=== PATIENT | female | born 1990 | race Caucasian/White ===

== ENCOUNTER 2016-10-20 09:55 | Emergency (ER) | payer OTHER ==
[2016-10-20 10:08] VITALS: TEMP 97.6; O2SAT 100
[2016-10-20] MEDS ORDERED: KETOROLAC TROMETHAMINE INJ 30 MG/ML VIAL IV ONE (10:18)
[2016-10-20] MEDS ORDERED: SODIUM CHLORIDE 0.9% (FLUSH) 10 ML SYG IV PRN (10:18)
[2016-10-20] MEDS ORDERED: ONDANSETRON INJ 4 MG/2 ML VIAL IV ONE (10:18)
[2016-10-20] MEDS ORDERED: SODIUM CHLORIDE 0.9% 1000ML 1,000 ML IVS PRN (10:18)
--- NOTE | 2016-10-20 10:22 | ED.PDOC ---
History of Present Illness - General Chief Complaint: Abdominal Pain Stated Complaint: abdominal pain n/v/d Time Seen by Provider: 10/20/16 10:18 Information Source: patient Exam Limitations: no limitations - History of Present Illness Initial Comments: PT REPORTS RUQ ABDOMINAL PAIN ASSOCIATED WITH 4 EPISODES OF VOMITING. PT REPORTS THE LAST EPISODE OF VOMITING WAS BLOOD TINGED. PT DENIES, DIARRHEA, FEVER, CHILLS, OR URINARY SYMPTOMS. Abdominal Pain Onset Location: RUQ Quality: moderate Timing/Duration: 1-3 hours Review of Systems - Review of Systems Constitutional: Denies: diaphoresis, fever EENTM: Denies: ear pain, throat pain Respiratory: Denies: cough, short of breath Cardiology: Denies: chest pain, palpitations Gastrointestinal/Abdominal: States: see HPI, abdominal pain, nausea, vomiting. Denies: diarrhea Genitourinary: Denies: dysuria, frequency Musculoskeletal: Denies: back pain, joint swelling Skin: Denies: change in color, lesions Neurological: Denies: headache, paresthesia Past Medical History (General) - Patient Medical History Hx Asthma: No Hx Hypertension: No Hx Diabetes: No Other Surgeries:: SHOULDER, KNEE SURGERY - Vaccination History Hx Influenza Vaccination: No Hx Pneumococcal Vaccination: No - Social History Hx Tobacco Use: No Hx Alcohol Use: No Hx Substance Use: No Hx Substance Use Treatment: No Hx Depression: No - Activities of Daily Living Assisted/Assisted Living (if applicable):: [facility] Agency (if applicable):: None - Female History Patient is a Female of Child Bearing Age (10 -59 yrs old): Yes Patient : No Family Medical History - Family History Mother Family History: No Known Living Status: Still Living Physical Exam - Physical Exam General Appearance: No apparent distress Eyes, Ears, Nose, Throat Exam: normal ENT inspection Neck: normal inspection Respiratory: normal breath sounds, no respiratory distress Cardiovascular/Chest: regular rate, rhythm, no murmur Gastrointestinal/Abdominal: soft, tenderness - EPIGASTRIC AND RUQ Back Exam: normal inspection Extremity: normal range of motion, normal inspection Neurologic: alert, normal mood/affect, oriented x 3 Skin Exam: normal color, warm/dry Progress - Progress Progress: 10/20/16 11:36 PT REPORTS SIGNIFICANT IMPROVEMENT OF SYMPTOMS AFTER IV TORADOL AND ZOFRAN. PT ABLE TO TOLERATE PO FLUIDS IN THE ED WITHOUT FURTHER EPISODES OF VOMITING. LABS DISCUSSED WITH PT. RECOMMEND OUTPATIENT U/S IF RUQ PAIN PERSISTS. WILL D/ C HOME WITH ANTIEMETIC AND RECOMMEND FOLLOW UP WITH PRIMARY PHYSICIAN. - Results/Orders Results/Orders: 10/20/16 10:18 Sodium Chloride 0.9% (Flush) [Saline Flush Syringe] 10 ml IV PRN PRN Sodium Chloride 0.9% 1000ML [Ns 1000 ml] 1,000 ml IVS .QD Laboratory Results - last 24 hr 10/20/16 10:35 WBC 5.3 RBC 4.78 Hgb 15.5 Hct 45.1 MCV 94.4 MCH 32.4 H MCHC 34.3 RDW 11.9 Plt Count 317 MPV 8.1 Absolute Neuts (auto) 3.30 Absolute Lymphs (auto) 1.60 Absolute Monos (auto) 0.30 Absolute Eos (auto) 0.10 Absolute Basos (auto) 0.10 Neutrophils % 61.3 Lymphocytes % 30.9 Monocytes % 5.8 Eosinophils % 1.0 Basophils % 1.0 Sodium 136 Potassium 3.6 Chloride 102 Carbon Dioxide 28 Anion Gap 9.6 L BUN 12 Creatinine 0.89 BUN/Creatinine Ratio 13.5 Random Glucose 92 Serum Osmolality 271.4 L Calcium 9.3 Total Bilirubin 0.6 Direct Bilirubin 0.1 Indirect Bilirubin 0.5 AST 22 ALT 28 Alkaline Phosphatase 81 Serum Total Protein 8.1 Albumin 4.8 Amylase 47 Lipase 23 Serum HCG, Qual Negative Urine Color Yellow Urine Appearance Clear Urine pH 7.5 Ur Specific [place] 1.020 Urine Protein Negative Urine Glucose (UA) Negative Urine Ketones Negative Urine Blood Trace-intact H Urine Nitrite Negative Urine Bilirubin Negative Urine Urobilinogen 0.2 Ur Leukocyte Esterase Negative Urine RBC 0-1 Urine WBC 0-1 Ur Epithelial Cells 3-5 Urine Bacteria 1+ Departure - Departure Clinical Impression: Abdominal pain Qualifiers: Abdominal location: right upper quadrant Qualifier Code: (R10.11) Right upper quadrant pain Vomiting Qualifiers: Vomiting type: hematemesis Nausea presence: with nausea Qualifier Code: (K92.0 ) Hematemesis Time of Disposition: 11:39 Disposition: Discharge to Home or Self Care Condition: Good Departure Forms: ED Discharge - Pt. Copy, Patient Portal Self Enrollment Instructions: DI for Abdominal Pain-Adult, DI for Vomiting -- Adult Diet: bland diet Prescriptions: Tramadol-Acetaminophen [Ultracet] 1 - 2 tab PO Q6HR PRN #30 tab PRN Reason: Pain Ondansetron Odt [Zofran ODT] 8 mg PO TID PRN #15 tab PRN Reason: Nausea/Vomiting Home Medications: Ambulatory Orders Ondansetron Odt [Zofran ODT] 8 mg PO TID PRN #15 tab 10/20/16 Tramadol-Acetaminophen [Ultracet] 1 - 2 tab PO Q6HR PRN #30 tab 10/20/16
[2016-10-20 12:01] VITALS: BP 129/77
== END 2016-10-20 12:01 | disposition home or self-care (01) ==
LOC: ER 09:55
DX: R10.11 Right upper quadrant pain (principal); K92.0 Hematemesis
CPT/HCPCS: 36415; 80048; 80076; 81001; 82150; 83690; 84703; 85025; J1885; J2405; J7030

== ENCOUNTER → 2016-11-01 | Outpatient (CLI) | payer OTHER ==
--- NOTE | 2016-11-01 13:39 | US ---
EXAM DESCRIPTION: Abdomen,Complete CLINICAL HISTORY: 26 years,Female,RUQ PAIN COMPARISON: None TECHNIQUE: Multiple real-time sonographic images were obtained of the entire abdomen. FINDINGS: The liver demonstrates normal echotexture. No masses. No cysts. The gallbladder demonstrates a small nodule seen at the neck of the gallbladder and is nonshadowing it measures about 6 mm. There is no pericholecystic fluid. The gallbladder wall thickness is unremarkable. No intrahepatic biliary ductal dilatation. The common bile duct measures three mm. The right kidney demonstrates normal cortical echotexture and thickness. There are no stones, hydronephrosis, or masses. The right kidney measures 9.6 cm in length. The left kidney demonstrates normal cortical echotexture and thickness. There are no stones, hydronephrosis, or masses. The left kidney measures 10 cm in length. The spleen demonstrates normal echotexture. No masses. It measures 10.3 cm in craniocaudal length. The visualized portions of the head and body of the pancreas are unremarkable. No free-fluid in the abdomen. The aorta is unremarkable for age. IMPRESSION: Either polyp or nonshadowing small stone in the neck of the gallbladder.. Electronically signed by: Cruz Stark MD 11/01/2016 1:38 PM CDT
== END | disposition home or self-care (01) ==
LOC: US 08:36
PROVIDERS: ATTEND Nurse Practitioner Acute Care
DX: R10.11 Right upper quadrant pain (principal)

== ENCOUNTER → 2016-11-03 | Outpatient (CLI) | payer OTHER | LOC: GMAJ 16:57 | PROVIDERS: ATTEND Family Medicine | DX: R10.13 Epigastric pain (principal) ==